=== PATIENT | male | born 1950 | race Caucasian/White ===

== ENCOUNTER 2018-08-10 10:06 | Day surgery (SDC) | payer MEDICARE ==
[2018-08-10] MEDS ORDERED: PROPOFOL 10 MG/ML VIAL IV ONE (10:07)
[2018-08-10] MEDS ORDERED: LIDOCAINE 2% MDV (20MG/ML) 20ML VIAL IV ONE (10:07)
--- NOTE | 2018-08-11 08:30 | Operative Note ---
DATE OF SURGERY: OPERATION: COLONOSCOPY with cold snare and cold forceps polypectomies. PREOPERATIVE DIAGNOSIS: Screening. POSTOPERATIVE DIAGNOSIS: Multiple colon polyps. PREPARATION QUALITY: Good. ESTIMATED BLOOD LOSS: Minimum. COMPLICATIONS: None. PROCEDURE: After informed consent was obtained from the patient, he was placed in the left lateral decubitus position in the endoscopy suite, sedated and monitored by the department of anesthesia. Digital rectal exam was unremarkable. A well-lubricated [id number] colonoscope was inserted into the rectum. Upon insertion of the endoscope, there was noted to be 2 rectal polyps approximately 5 mm in diameter each removed with a cold snare and retrieved. The endoscope was then advanced to the cecum. Preparation quality was good. The cecum was unremarkable; however, the ascending colon and transverse colon each revealed a diminutive polyp each removed with a cold forceps. The remainder of the ascending colon, transverse colon, cecum, and descending colon were unremarkable. In the sigmoid colon, there was another polyp approximately 4-5 mm in diameter removed with a cold snare. The rectum revealed 4 additional polyps seen in forward as well as J-turn views. All were removed with a cold snare. Minimal bleeding was noted at the sites. The polyps were retrieved without difficulty. The endoscope was straightened, the rectal ampulla deflated, and the endoscope was removed. RECOMMENDATIONS: I would suggest the patient resume his medications and diet. He will require repeat exam most likely in 3 years with a final determination based on tissue histology. As always, thank you for allowing me to participate in the healthcare of your patients. CC: RUSS Mattson
== END 2018-08-10 12:15 | disposition home or self-care (01) ==
LOC: HOP 10:06
PROVIDERS: ATTEND Internal Medicine Gastroenterology
DX: Z12.11 Encounter for screening for malignant neoplasm of colon (principal); D12.2 Benign neoplasm of ascending colon; D12.8 Benign neoplasm of rectum; D12.5 Benign neoplasm of sigmoid colon; D12.3 Benign neoplasm of transverse colon; I10 Essential (primary) hypertension; E11.9 Type 2 diabetes mellitus without complications; E78.00 Pure hypercholesterolemia, unspecified; R07.9 Chest pain, unspecified